=== PATIENT | male | born 1960 | race Caucasian/White ===

== ENCOUNTER → 2020-03-25 | Outpatient (CLI) | payer MEDICARE, OTHER ==
[2020-03-25 10:18] LABS: BUN/CREATININE RATIO 12 (0-10)
== END ==
LOC: LAB 08:51
PROVIDERS: Emergency Medicine
DX: I10 Essential (primary) hypertension (principal); E78.2 Mixed hyperlipidemia
CPT/HCPCS: 36415; 80053

== ENCOUNTER → 2020-10-07 | Outpatient (CLI) | payer MEDICARE, OTHER ==
[2020-10-07 09:07] LABS: HEMOGLOBIN 15.5 gm/dl (14.0-17.5); RED BLOOD COUNT 4.91 M/UL (4.20-5.50); WHITE BLOOD COUNT 5.7 K/UL (4.5-11.0)
[2020-10-07 09:36] LABS: BUN/CREATININE RATIO 11 (0-10)
[2020-10-09 17:12] LABS: CHOLESTEROL, TOTAL 224 mg/dL (100-199); HDL SIZE 8.7 nm (>=9.2); HDL-C 45 mg/dL (>39); HDL-P (TOTAL) 28.3 umol/L (>=30.5); LARGE HDL-P 2.7 umol/L (>=4.8); LARGE VLDL-P 4.9 nmol/L (<=2.7); LDL SIZE 20.7 nm (>20.5); LDL SIZE 20.7 nm (>=20.8); LDL-C 158 mg/dL (0-99); LDL-P 2102 nmol/L (<1000); LP-IR SCORE 73 (<=45); SMALL LDL-P 1103 nmol/L (<=527); TRIGLYCERIDES 118 mg/dL (0-149)
== END ==
LOC: LAB 08:24
PROVIDERS: Emergency Medicine
DX: Z12.5 Encounter for screening for malignant neoplasm of prostate (principal); I12.9 Hypertensive chronic kidney disease with stage 1 through stage 4 chronic kidney disease, or unspecified chronic kidney disease; N18.2 Chronic kidney disease, stage 2 (mild); E78.2 Mixed hyperlipidemia
CPT/HCPCS: 36415; 80053; 80061; 83704; 84550; 85025; G0103